=== PATIENT | female | born 1950 | race Caucasian/White ===

== ENCOUNTER → 2016-12-04 | Outpatient (CLI) | payer BC ==
[~2016-12-04] MED LIST: CHOL50003 PO; ESCT10T PO; FERR325C PO; HUMIRA IM; MTF500T PO; NEBI5TAB8 PO; PANT20TA PO
--- NOTE | 2016-12-04 14:38 | Diagnostic Imaging Report ---
Bilateral diagnostic mammogram. INDICATION: Left nipple discharge. CAD is utilized. No prior studies are available for comparison. FINDINGS: The breasts are composed of heterogeneously dense parenchyma which may decrease mammographic sensitivity. This is particularly seen within the central aspect of each breast. Along the inferior aspect of the lateral projection of the left side, there is an asymmetry that is evaluated with focal compression view which appears less prominent in favor of summation artifact of parenchyma. No suspicious calcification or mass identified. IMPRESSION: No mammographic evidence of malignancy. Ultrasound evaluation pending. ACR BI-RADS Category 0: Incomplete. (Needs additional imaging evaluation). Result letter will be mailed to the patient. Note: At least 10% of breast cancer is not imaged by mammography. Dictated by: Dictated on workstation # [id number]
--- NOTE | 2016-12-04 16:08 | Diagnostic Imaging Report ---
EXAMINATION: Left breast ultrasound. INDICATION: Left breast discharge and asymmetry along the inferior aspect of the left breast. FINDINGS: The four-quadrants and retroareolar region of the left breast were scanned with no underlying abnormality seen. IMPRESSION: Negative study. A 6 month followup mammogram is recommended to ensure stability or resolution of the inferior left breast asymmetry, likely related to summation artifact of parenchyma. Clinical followup for the breast discharge is also recommended. Consider cytologic evaluation of the discharge or an MRI if needed. ACR BI-RADS Category 3: Probably benign findings. Dictated by: Dictated on workstation # [id number]
== END ==
LOC: RAD 07:45
PROVIDERS: ATTEND Family Medicine
DX: N64.89 Other specified disorders of breast (principal); N64.52 Nipple discharge
CPT/HCPCS: 76641; 77066